=== PATIENT | female | born 1950 | race Caucasian/White ===

== ENCOUNTER → 2017-01-04 | Outpatient (CLI) | payer OTHER ==
[~2017-01-04] MED LIST: ANTIHISTAMINE OR; ASPIR 8181 M1 PO; ATORVASTATIN CA40 MG PO; CALCIUM 600 +1 EAC8 PO; CARISOPRODOL 3350 M1 OR; COLACE100 MG PO; DESYREL150 MG PO; DESYREL50 MG OR; DETROL LA4 MG OR; IBUPROFEN 600600 M1 PO; LEVOTHROID100 MC1 OR; LISINOPRIL10 MG OR; LORTAB 5 MG/5001 TA1 PO; MACROBID 100 M100 M1 PO; MOBIC15 MG PO; NIFEDICAL XL30 MG OR; NORVASC10 MG PO; OMEPRAZOLE 20 M20 M1 PO; PROTONIX40 M2 OR; TIROSINT100 MCG PO; ZOCOR80 MG OR
== END ==
LOC: RAD 01:41
DX: Z12.31 Encounter for screening mammogram for malignant neoplasm of breast (principal)

== ENCOUNTER → 2017-02-02 | Outpatient (CLI) | payer OTHER | LOC: RAD 11:26 | DX: Z12.31 Encounter for screening mammogram for malignant neoplasm of breast (principal) ==

== ENCOUNTER → 2017-12-06 | Outpatient (CLI) | payer OTHER ==
--- NOTE | ~2017-12-06 | PFR/MVV ---
[facility] [place] [address] PULMONARY FUNCTION MVV/REPORT Name: EMIGDIO LUCIANO Room #: REG [facility].#: [id number] Admission: 12/06/17 Attend Phys: Scott Brunner MD Discharge: Date of : 46 Report #: [id number] THIS REPORT FOR: //name// COPIES FOR: AGE: 67 SEX/RACE: F/C >> SPIROMETRY: (BTPS) Height: 65 in cm Weight: 179 lbs kg Exam Date: 12/06/17 PRE-RX POST-RX PRED BEST %PRED BEST %PRED %CHG FVC LITERS . 2.97 . 2.50 . 84 . 2.40 . 81 . -4 FEV1 LITERS . 2.35 . 1.90 . 81 . 2.00 . 85 . 5 FEV1/FVC % . 82 . 76 . 93 . 83 . 102 . 9 HCG11-18% L/Sec . 2.41 . 1.61 . 67 . 2.79 . 116 . 73 PEF L/SEC . 5.63 . 5.20 . 92 . 5.11 . 91 . -2 FEF50/FIF50 UNITLESS . <1.00 . 1.36 . . 1.80 . . 33 MVV L/Min . 85 . 68 . 80 f 1/Min . . 135 . >> LUNG VOLUMES: (BTPS) PRE-RX POST-RX PRED AVG %PRED AVG %PRED %CHG VC Liters . 2.97 . 2.50 . 84 . . . TLC Liters . 5.02 . 3.87 . 77 . . . RV Liters . 2.01 . 1.38 . 69 . . . RV/TLC % . 40 . 36 . 89 . . . FRC PL Liters . 2.66 . 1.99 . 75 . . . FRC N2 Liters . 2.66 . . . . . ERV Liters . . 0.61 . . . . IC Liters . . 2.01 . . . . >> DIFFUSION: DLCO ml/Min/mmHg . 21.7 . 13.9 . 64 . . . DL Kimmy ml/Min/mmHg . 21.7 . 13.9 . 64 . . . DLCO/VA ml/Min/mmHg . 3.59 . 3.95 . 110 . . . VA Liters . . 3.52 . . . . [facility] [address] [place] [address] PULMONARY FUNCTION MVV/REPORT Name: EMIGDIO LUCIANO Room #: REG [facility]#: [id number] Admission: 12/06/17 Attend Phys: Scott Brunner MD Discharge: Date of : 46 Report #: [id number] COMMENTS: COMMENTS: >> RESISTANCE: PRE-RX PRED AVG %PRED Raw Total cmH20/L/Sec . . 3.49 . Raw Insp cmH20/L/Sec . . 3.50 . Raw Exp cmH20/L/Sec . . 4.66 . Raw cmH20/L/Sec . 1.45 . 1.50 . 104 Gaw L/Sec/cmH20 . 0.637 . 0.668 . 105 sRaw cmH20 Sec . 3.84 . 4.50 . 117 sGaw l/cmH20 Sec . 0.260 . 0.222 . 85 Vtq Liters . . 3.01 . # = OUTSIDE 95% CONFIDENCE INTERVAL CALIBRATION: PRED: 3.00 ACTUAL: EXP 3.01 INSP 3.02 [facility]-06 [facility]-05 N-1804-4 >> INTERPRETATION/IMPRESSION: CC: Scott Lopez Spirometric examination revealed normal flows. There was no significant bronchodilator response. There was moderate improvement in the mid flow range at the FEF 25-75%, suggestive of possible small airways disease. Lung volumes are mildly decreased. Diffusion capacity is mildly reduced, but normal when corrected for alveolar volume. Compared to the previous study, the flows have decreased. Lung volumes also have shown some decrease in lung volumes. Diffusion capacity remains relatively unchanged. IMPRESSION: Normal flows with mildly decreased diffusion capacity along with lung volumes. Clinical correlation is suggested. <ELECTRONICALLY SIGNED> By: Kiet Brennan MD 12/15/17 1542 Kiet Brennan MD /nt
== END ==
LOC: PUL 09:48
DX: M34.9 Systemic sclerosis, unspecified (principal)

== ENCOUNTER → 2018-12-12 | Outpatient (CLI) | payer OTHER ==
[~2018-12-12] VITALS: Ht 162.6 cm; Wt 77.6 kg
[~2018-12-12] MED LIST changes: +FLONASE 0.05%50 MCG NASAL; +LISINOPRIL20 MG PO; +MULTIVITAMINS1 EAC7 PO; +PLAVIX 75 MG TA75 M1 PO; +SYNTHROID100 MC1 PO
== END | disposition home or self-care (01) ==
LOC: GI 07:26
DX: Z12.11 Encounter for screening for malignant neoplasm of colon (principal); K57.30 Diverticulosis of large intestine without perforation or abscess without bleeding; K64.8 Other hemorrhoids; I10 Essential (primary) hypertension; E78.5 Hyperlipidemia, unspecified; E78.00 Pure hypercholesterolemia, unspecified; E03.9 Hypothyroidism, unspecified; K21.9 Gastro-esophageal reflux disease without esophagitis; I73.00 Raynaud's syndrome without gangrene; Z80.0 Family history of malignant neoplasm of digestive organs; Z86.73 Personal history of transient ischemic attack (TIA), and cerebral infarction without residual deficits; Z98.890 Other specified postprocedural states; Z79.899 Other long term (current) drug therapy; Z88.2 Allergy status to sulfonamides; Z88.8 Allergy status to other drugs, medicaments and biological substances; Z90.49 Acquired absence of other specified parts of digestive tract
CPT/HCPCS: 62110; 62900

== ENCOUNTER → 2019-02-06 | Outpatient (CLI) | payer OTHER | LOC: RAD 01:35 | DX: Z12.31 Encounter for screening mammogram for malignant neoplasm of breast (principal) ==

== ENCOUNTER → 2019-09-29 | Outpatient (CLI) | payer OTHER | LOC: SJCVC 13:21 | DX: R00.1 Bradycardia, unspecified (principal); I10 Essential (primary) hypertension; E78.00 Pure hypercholesterolemia, unspecified; I73.00 Raynaud's syndrome without gangrene; M34.9 Systemic sclerosis, unspecified; I65.23 Occlusion and stenosis of bilateral carotid arteries; Z82.49 Family history of ischemic heart disease and other diseases of the circulatory system ==

== ENCOUNTER → 2019-10-23 | Outpatient (CLI) | payer OTHER | LOC: CAT 10-09 06:58 | DX: Z13.6 Encounter for screening for cardiovascular disorders (principal); I25.10 Atherosclerotic heart disease of native coronary artery without angina pectoris; E78.00 Pure hypercholesterolemia, unspecified ==

== ENCOUNTER → 2020-03-13 | Outpatient (CLI) | payer OTHER | LOC: SJCVCIMAG 07:25 | PROVIDERS: ATTEND Internal Medicine Cardiovascular Disease | DX: I65.23 Occlusion and stenosis of bilateral carotid arteries (principal); I08.1 Rheumatic disorders of both mitral and tricuspid valves; I10 Essential (primary) hypertension; Z82.49 Family history of ischemic heart disease and other diseases of the circulatory system ==

== ENCOUNTER → 2020-03-13 | Outpatient (CLI) | payer OTHER | LOC: RAD | PROVIDERS: ATTEND Family Medicine | DX: Z12.31 Encounter for screening mammogram for malignant neoplasm of breast (principal) ==

== ENCOUNTER → 2020-12-24 | Outpatient (CLI) | payer OTHER ==
--- NOTE | ~2020-12-24 | PFR/MVV ---
[facility] [place] [address] PULMONARY FUNCTION MVV/REPORT Name: EMIGDIO LUCIANO Room #: REG [facility].#: [id number] Admission: 12/24/20 Attend Phys: Scott Brunner MD Discharge: Date of : 46 Report #: [id number] THIS REPORT FOR: //name// COPIES FOR: AGE: 70 SEX/RACE: F/C >> SPIROMETRY: (BTPS) Height: 65 in cm Weight: 154 lbs kg Exam Date: 12/24/20 PRE-RX POST-RX PRED BEST %PRED BEST %PRED %CHG FVC LITERS . 2.92 . 2.65 . 91 . 2.60 . 89 . -2 FEV1 LITERS . 2.08 . 2.00 . 96 . 2.12 . 102 . 6 FEV1/FVC % . 71 . 75 . 106 . 82 . 114 . 8 IYA38-24% L/Sec . 2.32 . 1.72 . 74 . 2.40 . 103 . 40 PEF L/SEC . 5.58 . 4.67 . 84 . 5.12 . 92 . 10 FEF50/FIF50 UNITLESS . 2.83 . 3.52 . 124 . 4.54 . 161 . 29 MVV L/Min . 83 . 77 . 92 f 1/Min . . . >> LUNG VOLUMES: (BTPS) PRE-RX POST-RX PRED AVG %PRED AVG %PRED %CHG VC Liters . 2.92 . 2.65 . 91 . . . TLC Liters . 5.01 . 4.24 . 85 . . . RV Liters . 2.02 . 1.59 . 78 . . . RV/TLC % . 41 . 37 . 92 . . . FRC [address] Liters . 2.85 . 2.73 . 96 . . . FRC N2 Liters . 2.85 . . . . . ERV Liters . 0.98 . 1.20 . 122 . . . IC Liters . 1.97 . 1.51 . 77 . . . >> DIFFUSION: DLCO ml/Min/mmHg . 19.6 . 15.2 . 78 . . . DL Kimmy ml/Min/mmHg . 19.6 . 15.2 . 78 . . . DLCO/VA ml/Min/mmHg . 3.52 . 4.29 . 122 . . . VA Liters . . 3.55 . . . . [facility] [address] [place] [address] PULMONARY FUNCTION MVV/REPORT Name: EMIGDIO LUCIANO Room #: REG [facility] LizbethLandon#: [id number] Admission: 12/24/20 Attend Phys: Scott Brunner MD Discharge: Date of : 46 Report #: [id number] COMMENTS: COMMENTS: >> RESISTANCE: PRE-RX PRED AVG %PRED Raw Total cmH20/L/Sec . . 1.99 . Raw Insp cmH20/L/Sec . . 1.53 . Raw Exp cmH20/L/Sec . . 2.73 . Raw cmH20/L/Sec . 1.34 . 1.57 . 117 Gaw L/Sec/cmH20 . 0.683 . 0.638 . 93 sRaw cmH20 Sec . 3.81 . 5.12 . 134 sGaw l/cmH20 Sec . 0.262 . 0.195 . 74 Vtq Liters . . 3.27 . # = OUTSIDE 95% CONFIDENCE INTERVAL CALIBRATION: PRED: 3.00 ACTUAL: EXP 3.[address] [facility]-06 [facility]05 N-1804-4 >> INTERPRETATION/IMPRESSION: DATE OF SERVICE: 12/24/2020 PULMONARY FUNCTION STUDIES SPIROMETRY: FEV1 is 2.00 liters (96% predicted), FVC is 2.65 liters (91% predicted), FEV1/FVC ratio is 75%. Post-bronchodilator therapy with no significant response. Total lung capacity is 4.24 liters (85% predicted). Diffusing capacity is 78%. IMPRESSION: Pulmonary function studies are consistent with a borderline obstructive airflow defect. FEV1/FVC ratio is 75%. There is no significant response to bronchodilator therapy. Total lung capacity is normal. Diffusing capacity is normal. By: Rafi Sauer MD /nt
== END ==
LOC: PUL 08:54
PROVIDERS: ATTEND Internal Medicine Rheumatology
DX: J98.8 Other specified respiratory disorders (principal); I10 Essential (primary) hypertension; M34.9 Systemic sclerosis, unspecified; M79.7 Fibromyalgia; E78.5 Hyperlipidemia, unspecified; E03.9 Hypothyroidism, unspecified; Z68.26 Body mass index [BMI] 26.0-26.9, adult

== ENCOUNTER → 2021-03-31 | Outpatient (CLI) | payer OTHER | LOC: RAD 03-28 14:17 | PROVIDERS: ATTEND Family Medicine | DX: Z12.31 Encounter for screening mammogram for malignant neoplasm of breast (principal); N64.89 Other specified disorders of breast ==